=== PATIENT | female | born 1975 | race Two or more races ===

== ENCOUNTER 2024-01-02 19:58 | Emergency (ER) | payer OTHER ==
[~2024-01-02] VITALS: Ht 165.1 cm; Wt 78.9 kg
[2024-01-02 21:02] VITALS: BP 130/78; TEMP 98.5; O2SAT 99
[2024-01-02] MEDS ORDERED: PRED50TA PO (21:20)
[2024-01-02] MEDS ORDERED: HYDR-4182 TP (21:20)
[2024-01-02] MEDS ORDERED: DIPH25CA83 PO (21:20)
[2024-01-02] MEDS ORDERED: predniSONE 20 MG TABLET ONE (21:25)
[2024-01-02] MEDS: predniSONE 50 MG TABLET PO ONE (21:29)
== END 2024-01-02 21:32 | disposition home or self-care (01) ==
LOC: ER 20:35
DX: S81.831A Puncture wound without foreign body, right lower leg, initial encounter (principal); Z79.52 Long term (current) use of systemic steroids; W57.XXXA Bitten or stung by nonvenomous insect and other nonvenomous arthropods, initial encounter; Y93.89 Activity, other specified; Y92.89 Other specified places as the place of occurrence of the external cause; Y99.8 Other external cause status
CPT/HCPCS: 99283; J7512